=== PATIENT | female | born 1940 ===

== ENCOUNTER 2017-09-28 16:38 | Inpatient (IN) | payer OTHER ==
[~2017-09-28] VITALS: Ht 162.6 cm; Wt 79.4 kg
[~2017-09-28 16:38] MED LIST: ALEVE220 MG PO; ALLEGRA ALLERG180 MG PO; CRESTOR10 MG; FLONASE16 GM NS; N
== END 2017-09-30 17:53 | disposition home or self-care (01) | DRG 392 ==
LOC: ER 16:38 → SURG 18:19
PROC: BW21YZZ Computerized Tomography (CT Scan) of Abdomen and Pelvis using Other Contrast (ICD-10-PCS; principal; 2017-09-28)
DX: K57.32 Diverticulitis of large intestine without perforation or abscess without bleeding (principal); E78.00 Pure hypercholesterolemia, unspecified

== ENCOUNTER 2019-12-06 08:51 | Outpatient (CLI) | payer OTHER | END 2019-12-06 15:00 | disposition home or self-care (01) | LOC: LAB 08:51 | DX: N20.0 Calculus of kidney (principal) ==

== ENCOUNTER 2019-12-06 09:57 | Outpatient (CLI) | payer OTHER | END 2019-12-06 14:48 | disposition home or self-care (01) | LOC: TOM 09:57 | PROVIDERS: ATTEND Internal Medicine Gastroenterology | DX: K57.32 Diverticulitis of large intestine without perforation or abscess without bleeding (principal); R10.32 Left lower quadrant pain ==

== ENCOUNTER 2021-01-21 08:00 | Outpatient (CLI) | payer OTHER | END 2021-01-21 08:30 | disposition home or self-care (01) | LOC: PPH VACUNA 08:00 | DX: Z23 Encounter for immunization (principal) ==

== ENCOUNTER 2021-11-04 15:20 | Outpatient (CLI) | payer OTHER | END 2021-11-04 15:30 | disposition home or self-care (01) | LOC: PPH VACUNA 15:20 | PROVIDERS: ATTEND Emergency Medicine Pediatric Emergency Medicine | DX: Z23 Encounter for immunization (principal) ==

== ENCOUNTER 2023-01-09 14:05 | Outpatient (CLI) | payer OTHER | END 2023-01-09 14:13 | disposition home or self-care (01) | LOC: RAD 14:05 | PROVIDERS: ATTEND Specialist | DX: M15.8 Other polyosteoarthritis (principal) ==